=== PATIENT | male | born 1940 | race Caucasian/White ===

== ENCOUNTER → 2016-07-08 | Outpatient (CLI) | payer OTHER, MEDICAID | LOC: BMCIMAGING 12:22 | PROVIDERS: ATTEND Internal Medicine Rheumatology | DX: M15.4 Erosive (osteo)arthritis (principal) ==

== ENCOUNTER → 2018-04-07 | Outpatient (CLI) | payer OTHER, MEDICAID | LOC: FIMAGING 13:21 | PROVIDERS: ATTEND Internal Medicine | DX: R41.3 Other amnesia (principal) ==

== ENCOUNTER 2018-07-06 10:37 | Inpatient (IN) | payer OTHER, MEDICAID ==
[2018-07-06] MEDS ORDERED: NS 1,000 ML IV ONE (10:38)
--- NOTE | 2018-07-06 10:53 | EDPHY ---
H & P Stated Complaint: abdominal pain, nausea Time Seen by Provider: 07/06/18 10:38 HPI/ROS: CHIEF COMPLAINT: Fever, abdominal pain, jaundice HISTORY OF PRESENT ILLNESS: The patient is referred to the emergency department from primary care where he was noted to be febrile in jaundice. The patient has had 2 days of fever and epigastric pain. The patient does have a prior history of cholecystectomy in 2016. It sounds as if there may have been some component of choledocholithiasis at that point time. The patient has reported nausea over the past several days. He is not had vomiting, diarrhea, hematemesis or melena. The patient reports moderate to severe pain in the epigastrium. He reports loss of appetite. REVIEW OF SYSTEMS: A comprehensive 10 point review of systems is otherwise negative aside from elements mentioned in the history of present illness. Source: Patient Exam Limitations: No limitations - Personal History Current Tetanus/Diphtheria Vaccine: Unsure Current Tetanus Diphtheria and Acellular Pertussis (TDAP): Unsure - Medical/Surgical History Hx Asthma: No Hx Chronic Respiratory Disease: No Hx Diabetes: Yes Hx Cardiac Disease: No Hx Renal Disease: No Hx Cirrhosis: No Hx Alcoholism: No Hx HIV/AIDS: No Hx Splenectomy or Spleen Trauma: No Other PMH: diabetic 2 , skin lymphoma, hypertension, glaucoma, feet drop - Social History Smoking Status: Former smoker - Physical Exam Exam: General Appearance: Alert, no distress Eyes: Pupils equal and round no pallor or injection, slight icterus ENT, Mouth: Mucous membranes moist Respiratory: There are no retractions, lungs are clear to auscultation Cardiovascular: Regular rate and rhythm Gastrointestinal: Tenderness to palpation in the epigastrium and right upper quadrant, no peritoneal signs Neurological: A&O, normal motor function, normal sensory exam, normal cranial nerves Skin: Warm and dry, no rashes, suggestion of jaundice Musculoskeletal: Neck is supple nontender Extremities: symmetrical, full range of motion Constitutional: Initial Vital Signs Temperature (C) 36.7 C 07/06/18 10:43 Heart Rate 92 07/06/18 10:43 Respiratory Rate 18 07/06/18 10:43 Blood Pressure 132/81 H 07/06/18 10:43 O2 Sat (%) 98 07/06/18 10:43 O2 Delivery Mode Room Air Allergies/Adverse Reactions: latex Allergy (Verified 01/12/16 00:15) Latex, Natural Rubber Allergy (Verified 01/12/16 00:15) Penicillins Allergy (Verified 01/12/16 00:15) ramipril Allergy (Verified 01/12/16 00:15) Home Medications: Medication Instructions Recorded Allopurinol [Allopurinol 300 MG 300 mg PO DAILY 02/22/13 (RX)] Aspirin [Aspirin 81mg (*)] 81 mg PO DAILY 02/22/13 Atorvastatin Calcium [Lipitor 10 10 mg PO DAILY 02/22/13 mg (*)] Dorzolamide/Timolol [Cosopt (*)] 1 drops EACHEYE BID 02/22/13 Latanoprost 0.005% [Xalatan 0.005% 1 drops EACHEYE HS 02/22/13 (*)] [place]-3 Fatty Acids [Fish Oil 1000 3,000 mg PO DAILY 02/22/13 mg (*)] predniSONE 1 mg PO BID 02/06/16 Cholecalciferol Vit D3 [Vitamin D3 2,000 units PO DAILY 02/09/16 2000 units tab (OTC)] Econazole 1% [Spectazole 1%] 1 micah TP DAILY PRN 02/09/16 Fluticasone Nasal [Flonase Nasal 1 sprays NASAL DAILY PRN 02/09/16 [place]] Hydrochlorothiazide [HCTZ (*)] 25 mg PO DAILY 02/09/16 Magnesium Oxide [Magnesium Oxide 400 mg PO BID 02/09/16 400 mg (*)] Polyethylene Glycol 3350 [Miralax 17 gm PO BID 02/09/16 17 gm (*)] Triamcinolone 0.1% [Triamcinolone 1 micah TP DAILY PRN 02/09/16 0.1% Cream (*)] Hydrocodone/APAP 5/325 [[place] 1 - 2 tab PO Q4H PRN #30 tab 02/11/16 5/325 (*)] Medical Decision Making - Diagnostics Imaging Results: CT abdomen pelvis with IV contrast: Images reviewed by myself and discussed with radiologist. Impression choledocholithiasis with 1.3 cm stone noted at the ampulla. ED Course/Re-evaluation: Patient presents the ED with fever, epigastric pain, elevated liver function test and pancreatitis. The patient is afebrile, normotensive and not tachycardic. His venous lactate is reassuring. The patient [place] [address]. Given the patient's penicillin allergy will be started on Levaquin and Flagyl. I consulted with Dr. Cesilia trevizo from Gastroenterology who will see the patient in consultation. The patient will be admitted to the hospitalist service. The patient remained hemodynamically stable throughout his stay in the emergency department. He received IV fluids. He has no evidence of septic physiology, severe sepsis or septic shock. Differential Diagnosis: Differential diagnosis considered includes cholangitis, choledocholithiasis, pancreatic mass, metabolic derangement, sepsis - Data Points Laboratory Results: Laboratory Results 07/06/18 10:55 07/06/18 10:55 07/06/18 07/06/18 07/06/18 10:55 10:55 10:55 WBC 11.25 10^3/uL H 10^3/uL (3.80-9.50) RBC 4.21 10^6/uL L 10^6/uL (4.40-6.38) Hgb 13.4 g/dL L g/dL (13.7-17.5) Hct 37.4 % L % (40.0-51.0) MCV 88.8 fL fL (81.5-99.8) MCH 31.8 pg pg (27.9-34.1) MCHC 35.8 g/dL g/dL (32.4-36.7) RDW 12.7 % % (11.5-15.2) Plt Count 209 10^3/uL 10^3/uL (150-400) MPV 9.9 fL fL (8.7-11.7) Neut % (Auto) 82.3 % H % (39.3-74.2) Lymph % (Auto) 5.8 % L % (15.0-45.0) [place] % (Auto) 8.0 % % (4.5-13.0) Eos % (Auto) 2.8 % % (0.6-7.6) Baso % (Auto) 0.4 % % (0.3-1.7) Nucleat RBC Rel Count 0.0 % % (0.0-0.2) Absolute Neuts (auto) 9.27 10^3/uL H 10^3/uL (1.70-6.50) Absolute Lymphs (auto) 0.65 10^3/uL L 10^3/uL (1.00-3.00) Absolute Monos (auto) 0.90 10^3/uL H 10^3/uL (0.30-0.80) Absolute Eos (auto) 0.31 10^3/uL 10^3/uL (0.03-0.40) Absolute Basos (auto) 0.04 10^3/uL 10^3/uL (0.02-0.10) Absolute Nucleated RBC 0.00 10^3/uL 10^3/uL (0-0.01) Immature Gran % 0.7 % % (0.0-1.1) Immature Gran # 0.08 10^3/uL 10^3/uL (0.00-0.10) PT 13.0 SEC SEC (12.0-15.0) INR 1.02 (0.83-1.16) APTT 35.4 SEC SEC (23.0-38.0) VBG Lactic Acid Sodium 127 mEq/L L mEq/L (135-145) Potassium 3.6 mEq/L mEq/L (3.5-5.2) Chloride 90 mEq/L L mEq/L (97-110) Carbon Dioxide 24 mEq/l mEq/l (22-31) Anion Gap 13 mEq/L mEq/L (6-14) BUN 26 mg/dL H mg/dL (7-23) Creatinine 1.1 mg/dL mg/dL (0.7-1.3) Estimated GFR > 60 Glucose 117 mg/dL H mg/dL (70-100) Calcium 9.4 mg/dL mg/dL (8.5-10.4) Total Bilirubin 8.3 mg/dL H mg/dL (0.1-1.4) Conjugated Bilirubin 6.7 mg/dL H mg/dL (0.0-0.5) Unconjugated Bilirubin 1.6 mg/dL H mg/dL (0.0-1.1) AST 242 IU/L H IU/L (17-59) ALT 269 IU/L H IU/L (21-72) Alkaline Phosphatase 267 IU/L H IU/L (38-126) Total Protein 7.7 g/dL g/dL (6.3-8.2) Albumin 4.2 g/dL g/dL (3.5-5.0) Lipase 4818 IU/L H IU/L (23-300) 07/06/18 10:55 WBC RBC Hgb Hct MCV MCH MCHC RDW Plt Count MPV Neut % (Auto) Lymph % (Auto) [place] % (Auto) Eos % (Auto) Baso % (Auto) Nucleat RBC Rel Count Absolute Neuts (auto) Absolute Lymphs (auto) Absolute Monos (auto) Absolute Eos (auto) Absolute Basos (auto) Absolute Nucleated RBC Immature Gran % Immature Gran # PT INR APTT VBG Lactic Acid 1.2 mmol/L mmol/L (0.7-2.1) Sodium Potassium Chloride Carbon Dioxide Anion Gap BUN Creatinine Estimated GFR Glucose Calcium Total Bilirubin Conjugated Bilirubin Unconjugated Bilirubin AST ALT Alkaline Phosphatase Total Protein Albumin Lipase Medications Given: Discontinued Medications Sodium Chloride (Ns) 1,000 mls @ 0 mls/hr IV ONCE ONE; Wide Open PRN Reason: Protocol Stop: 07/06/18 10:39 Last Admin: 07/06/18 11:25 Dose: 1,000 mls Departure - Departure Disposition: [facility] Acute Clinical Impression: Cholangitis, Choledocholithiasis Condition: Fair
[2018-07-06 11:32] LABS: PLATELET COUNT 209 10^3/uL (150-400)
[2018-07-06 11:38] LABS: INR 1.02 (0.83-1.16)
[2018-07-06] MEDS ORDERED: IOPAMIDOL (ISOVUE-300) 100 ML BTL ONE (11:57)
[2018-07-06] MEDS ORDERED: IOPAMIDOL (ISOVUE-370) 150 ML BTL IV ONE (12:02)
[2018-07-06] MEDS ORDERED: CLINDAMYCIN 600 MG/DEXTROSE 50 ML IV ONE (12:07)
[2018-07-06] MEDS ORDERED: HYDROmorphONE/DILAUDID 1 MG/ML INJ IVP PRN (13:29)
[2018-07-06] MEDS ORDERED: ONDANSETRON 4 MG/2 ML VIAL IVP PRN (13:29)
[2018-07-06] MEDS ORDERED: ONDANSETRON DISINTEGRATING 4 MG TAB PO PRN (13:29)
--- NOTE | 2018-07-06 13:29 | PDGENHP ---
History and Physical - History of Present Illness History Information - Allergies/Home Medication List Allergies/Adverse Reactions: latex Allergy (Verified 01/12/16 00:15) Latex, Natural Rubber Allergy (Verified 01/12/16 00:15) Penicillins Allergy (Verified 07/06/18 13:28) Unknown ramipril Allergy (Verified 07/06/18 13:29) Other-Enter Comments Home Medications: Allopurinol [Allopurinol 300 MG (RX)] 300 mg PO DAILY 02/22/13 [Last Taken 07/04] Aspirin [Aspirin 81mg (*)] 81 mg PO DAILY 02/22/13 [Last Taken 07/04/18] Atorvastatin Calcium [Lipitor 10 mg (*)] 10 mg PO DAILY 02/22/13 [Last Taken ] Latanoprost 0.005% [Xalatan 0.005% (*)] 1 drops EACHEYE HS 02/22/13 [Last Taken 07/04/18] [place]-3 Fatty Acids [Fish Oil 1000 mg (*)] 3,000 mg PO DAILY 02/22/13 [Last Taken 07/04/18] Cholecalciferol Vit D3 [Vitamin D3 2000 units tab (OTC)] 2,000 units PO DAILY [Last Taken 07/04/18] Econazole 1% [Spectazole 1%] 1 micah TP DAILY PRN 02/09/16 [Last Taken Unknown] Fluticasone Nasal [Flonase Nasal [place]] 1 sprays NASAL DAILY PRN 02/09/16 [Last Taken 07/04/18] Magnesium Oxide [Magnesium Oxide 400 mg (*)] 400 mg PO BID 02/09/16 [Last Taken 07/04/18] Polyethylene Glycol 3350 [Miralax 17 gm (*)] 17 gm PO BID 02/09/16 [Last Taken 07/04/18] Triamcinolone 0.1% [Triamcinolone 0.1% Cream (*)] 1 micah TP DAILY PRN 02/09/16 [ Last Taken Unknown] Brimonidine 0.2% [ALPHAGAN 0.2% (RX)] 1 drops EACHEYE BID 07/06/18 [Last Taken 07/04/18] Dorzolamide 2% [Trusopt 2% (*)] 1 drops EACHEYE BID 07/06/18 [Last Taken ] Hydrochlorothiazide [HCTZ (*)] 12.5 mg PO DAILY 07/06/18 [Last Taken 07/05/18] Losartan Potassium [Cozaar 50 mg (*)] 50 mg PO DAILY 07/06/18 [Last Taken ] I have personally reviewed and updated: family history, medical history, social history, surgical history - Past Medical History diabetes type 2 - Surgical History Reports: cholecystectomy - Family History Positive for: non-pertinent - Social History Smoking Status: Former smoker Review of Systems Review of Systems: Physical Exam Physical Exam: Temp Pulse Resp BP Pulse Ox 36.7 C 92 18 132/81 H 98 07/06/18 10:43 07/06/18 10:43 07/06/18 10:43 07/06/18 10:43 07/06/18 10:43 Lab Data & Imaging Review 07/06/18 10:55 07/06/18 10:55 WBC 11.25 10^3/uL (3.80-9.50) H 07/06/18 10:55 RBC 4.21 10^6/uL (4.40-6.38) L 07/06/18 10:55 Hgb 13.4 g/dL (13.7-17.5) L 07/06/18 10:55 Hct 37.4 % (40.0-51.0) L 07/06/18 10:55 MCV 88.8 fL (81.5-99.8) 07/06/18 10:55 MCH 31.8 pg (27.9-34.1) 07/06/18 10:55 MCHC 35.8 g/dL (32.4-36.7) 07/06/18 10:55 RDW 12.7 % (11.5-15.2) 07/06/18 10:55 Plt Count 209 10^3/uL (150-400) 07/06/18 10:55 MPV 9.9 fL (8.7-11.7) 07/06/18 10:55 Neut % (Auto) 82.3 % (39.3-74.2) H 07/06/18 10:55 Lymph % (Auto) 5.8 % (15.0-45.0) L 07/06/18 10:55 [place] % (Auto) 8.0 % (4.5-13.0) 07/06/18 10:55 Eos % (Auto) 2.8 % (0.6-7.6) 07/06/18 10:55 Baso % (Auto) 0.4 % (0.3-1.7) 07/06/18 10:55 Nucleat RBC Rel Count 0.0 % (0.0-0.2) 07/06/18 10:55 Absolute Neuts (auto) 9.27 10^3/uL (1.70-6.50) H 07/06/18 10:55 Absolute Lymphs (auto) 0.65 10^3/uL (1.00-3.00) L 07/06/18 10:55 Absolute Monos (auto) 0.90 10^3/uL (0.30-0.80) H 07/06/18 10:55 Absolute Eos (auto) 0.31 10^3/uL (0.03-0.40) 07/06/18 10:55 Absolute Basos (auto) 0.04 10^3/uL (0.02-0.10) 07/06/18 10:55 Absolute Nucleated RBC 0.00 10^3/uL (0-0.01) 07/06/18 10:55 Immature Gran % 0.7 % (0.0-1.1) 07/06/18 10:55 Immature Gran # 0.08 10^3/uL (0.00-0.10) 07/06/18 10:55 PT 13.0 SEC (12.0-15.0) 07/06/18 10:55 INR 1.02 (0.83-1.16) 07/06/18 10:55 APTT 35.4 SEC (23.0-38.0) 07/06/18 10:55 VBG Lactic Acid 1.2 mmol/L (0.7-2.1) 07/06/18 10:55 Sodium 127 mEq/L (135-145) L 07/06/18 10:55 Potassium 3.6 mEq/L (3.5-5.2) 07/06/18 10:55 Chloride 90 mEq/L (97-110) L 07/06/18 10:55 Carbon Dioxide 24 mEq/l (22-31) 07/06/18 10:55 Anion Gap 13 mEq/L (6-14) 07/06/18 10:55 BUN 26 mg/dL (7-23) H 07/06/18 10:55 Creatinine 1.1 mg/dL (0.7-1.3) 07/06/18 10:55 Estimated GFR > 60 07/06/18 10:55 Glucose 117 mg/dL (70-100) H 07/06/18 10:55 Calcium 9.4 mg/dL (8.5-10.4) 07/06/18 10:55 Total Bilirubin 8.3 mg/dL (0.1-1.4) H 07/06/18 10:55 Conjugated Bilirubin 6.7 mg/dL (0.0-0.5) H 07/06/18 10:55 Unconjugated Bilirubin 1.6 mg/dL (0.0-1.1) H 07/06/18 10:55 AST 242 IU/L (17-59) H 07/06/18 10:55 ALT 269 IU/L (21-72) H 07/06/18 10:55 Alkaline Phosphatase 267 IU/L (38-126) H 07/06/18 10:55 Total Protein 7.7 g/dL (6.3-8.2) 07/06/18 10:55 Albumin 4.2 g/dL (3.5-5.0) 07/06/18 10:55 Lipase 4818 IU/L (23-300) H 07/06/18 10:55 Assessment & Plan Assessment: Cholangitis / choledocholithiasis - No signs of sepsis. Note h/o cholecystectomy. CT personally reviewed, CBD 1.6 cm with presumed obstructing stone. -NPO, IVF's, pain control -Ceftriaxone / Flagyl -GI consult, will likely need ERCP Pancreatitis - lipase >4K, likely in setting of above -NPO for bowel rest, IVF's, pain control -will discuss with GI timing of ERCP for above given risk of worsening acute pancreatitis with intervention Possible LLL PNA - seen on CT. Pt has cough, no hypoxemia -should be covered by Ceftriaxone -check CXR Hyponatremia - suspect hypovolemic -recheck in am after NS Hyperlipidemia - hold statin with elevated LFT's Full code DVT PPLX - defer lovenox as may warrant intervention, SCD's for now Dispo - inpt, anticipate >48 hrs hospitalization for cholangitis, pancreatitis and possible PNA
[2018-07-06] MEDS ORDERED: ECONAZOLE 1% CREAM TP PRN (14:39)
[2018-07-06] MEDS ORDERED: FLUTICASONE NASAL 120 SPRAYS/16 GM MDI EACHNARE PRN (14:39)
--- NOTE | 2018-07-06 14:57 | PDGENHP ---
History and Physical - Chief Complaint abdominal pain - History of Present Illness 78 yo male with h/o prior cholecystectomy in 2016 presents to ED with abdominal pain, nausea and fever. History is obtained from his daughter at his request. She reports he developed a cough about a week ago. This has progressed. Two days ago, he began to complain of abdominal pain and had some nausea and vomiting. He then developed fever. Today, his pain became severe and he came to the ED. He denies CP or shortness of breath. In the ED, CT abdomen showed obvious common bile duct dilatation and probable 1.3 cm stone. GI was consulted. Blood cultures were drawn. He received Levaquin and Flagyl and is admitted for further management. History Information - Allergies/Home Medication List Allergies/Adverse Reactions: latex Allergy (Verified 01/12/16 00:15) Latex, Natural Rubber Allergy (Verified 01/12/16 00:15) Penicillins Allergy (Verified 07/06/18 13:28) Unknown ramipril Allergy (Verified 07/06/18 13:29) Other-Enter Comments Home Medications: Allopurinol [Allopurinol 300 MG (RX)] 300 mg PO DAILY 02/22/13 [Last Taken 07/04] Aspirin [Aspirin 81mg (*)] 81 mg PO DAILY 02/22/13 [Last Taken 07/04/18] Atorvastatin Calcium [Lipitor 10 mg (*)] 10 mg PO DAILY 02/22/13 [Last Taken ] Latanoprost 0.005% [Xalatan 0.005% (*)] 1 drops EACHEYE HS 02/22/13 [Last Taken 07/04/18] [place]-3 Fatty Acids [Fish Oil 1000 mg (*)] 3,000 mg PO DAILY 02/22/13 [Last Taken 07/04/18] Cholecalciferol Vit D3 [Vitamin D3 2000 units tab (OTC)] 2,000 units PO DAILY [Last Taken 07/04/18] Econazole 1% [Spectazole 1%] 1 micah TP DAILY PRN 02/09/16 [Last Taken Unknown] Fluticasone Nasal [Flonase Nasal [place]] 1 sprays NASAL DAILY PRN 02/09/16 [Last Taken 07/04/18] Magnesium Oxide [Magnesium Oxide 400 mg (*)] 400 mg PO BID 02/09/16 [Last Taken 07/04/18] Polyethylene Glycol 3350 [Miralax 17 gm (*)] 17 gm PO BID 02/09/16 [Last Taken 07/04/18] Triamcinolone 0.1% [Triamcinolone 0.1% Cream (*)] 1 micah TP DAILY PRN 02/09/16 [ Last Taken Unknown] Brimonidine 0.2% [ALPHAGAN 0.2% (RX)] 1 drops EACHEYE BID 07/06/18 [Last Taken 07/04/18] Dorzolamide 2% [Trusopt 2% (*)] 1 drops EACHEYE BID 07/06/18 [Last Taken ] Hydrochlorothiazide [HCTZ (*)] 12.5 mg PO DAILY 07/06/18 [Last Taken 07/05/18] Losartan Potassium [Cozaar 50 mg (*)] 50 mg PO DAILY 07/06/18 [Last Taken ] I have personally reviewed and updated: family history, medical history, social history, surgical history - Past Medical History diabetes type 2 - Surgical History Reports: cholecystectomy - Family History Positive for: non-pertinent - Social History Smoking Status: Former smoker Alcohol Use: Rarely Drug Use: None Additional social history: Lives independently Review of Systems Review of Systems: ROS: 10pt was reviewed & negative except for what was stated in HPI & below Physical Exam Physical Exam: Temp Pulse Resp BP Pulse Ox 36.7 C 93 16 133/82 H 93 07/06/18 14:38 07/06/18 14:38 07/06/18 14:38 07/06/18 14:38 07/06/18 14:38 Constitutional: no apparent distress Eyes: PERRL Ears, Nose, Mouth, Throat: moist mucous membranes Cardiovascular: regular rate and rhythym Respiratory: no respiratory distress, other (LLL crackles) Gastrointestinal: other (soft, nd, +epigastric and RUQ TTP, no r/r/g, +BS) Skin: warm Musculoskeletal: full muscle strength Neurologic: AAOx3 Psychiatric: interacting appropriately Lab Data & Imaging Review 07/06/18 10:55 07/06/18 10:55 WBC 11.25 10^3/uL (3.80-9.50) H 07/06/18 10:55 RBC 4.21 10^6/uL (4.40-6.38) L 07/06/18 10:55 Hgb 13.4 g/dL (13.7-17.5) L 07/06/18 10:55 Hct 37.4 % (40.0-51.0) L 07/06/18 10:55 MCV 88.8 fL (81.5-99.8) 07/06/18 10:55 MCH 31.8 pg (27.9-34.1) 07/06/18 10:55 MCHC 35.8 g/dL (32.4-36.7) 07/06/18 10:55 RDW 12.7 % (11.5-15.2) 07/06/18 10:55 Plt Count 209 10^3/uL (150-400) 07/06/18 10:55 MPV 9.9 fL (8.7-11.7) 07/06/18 10:55 Neut % (Auto) 82.3 % (39.3-74.2) H 07/06/18 10:55 Lymph % (Auto) 5.8 % (15.0-45.0) L 07/06/18 10:55 [place] % (Auto) 8.0 % (4.5-13.0) 07/06/18 10:55 Eos % (Auto) 2.8 % (0.6-7.6) 07/06/18 10:55 Baso % (Auto) 0.4 % (0.3-1.7) 07/06/18 10:55 Nucleat RBC Rel Count 0.0 % (0.0-0.2) 07/06/18 10:55 Absolute Neuts (auto) 9.27 10^3/uL (1.70-6.50) H 07/06/18 10:55 Absolute Lymphs (auto) 0.65 10^3/uL (1.00-3.00) L 07/06/18 10:55 Absolute Monos (auto) 0.90 10^3/uL (0.30-0.80) H 07/06/18 10:55 Absolute Eos (auto) 0.31 10^3/uL (0.03-0.40) 07/06/18 10:55 Absolute Basos (auto) 0.04 10^3/uL (0.02-0.10) 07/06/18 10:55 Absolute Nucleated RBC 0.00 10^3/uL (0-0.01) 07/06/18 10:55 Immature Gran % 0.7 % (0.0-1.1) 07/06/18 10:55 Immature Gran # 0.08 10^3/uL (0.00-0.10) 07/06/18 10:55 PT 13.0 SEC (12.0-15.0) 07/06/18 10:55 INR 1.02 (0.83-1.16) 07/06/18 10:55 APTT 35.4 SEC (23.0-38.0) 07/06/18 10:55 VBG Lactic Acid 1.2 mmol/L (0.7-2.1) 07/06/18 10:55 Sodium 127 mEq/L (135-145) L 07/06/18 10:55 Potassium 3.6 mEq/L (3.5-5.2) 07/06/18 10:55 Chloride 90 mEq/L (97-110) L 07/06/18 10:55 Carbon Dioxide 24 mEq/l (22-31) 07/06/18 10:55 Anion Gap 13 mEq/L (6-14) 07/06/18 10:55 BUN 26 mg/dL (7-23) H 07/06/18 10:55 Creatinine 1.1 mg/dL (0.7-1.3) 07/06/18 10:55 Estimated GFR > 60 07/06/18 10:55 Glucose 117 mg/dL (70-100) H 07/06/18 10:55 Calcium 9.4 mg/dL (8.5-10.4) 07/06/18 10:55 Total Bilirubin 8.3 mg/dL (0.1-1.4) H 07/06/18 10:55 Conjugated Bilirubin 6.7 mg/dL (0.0-0.5) H 07/06/18 10:55 Unconjugated Bilirubin 1.6 mg/dL (0.0-1.1) H 07/06/18 10:55 AST 242 IU/L (17-59) H 07/06/18 10:55 ALT 269 IU/L (21-72) H 07/06/18 10:55 Alkaline Phosphatase 267 IU/L (38-126) H 07/06/18 10:55 Total Protein 7.7 g/dL (6.3-8.2) 07/06/18 10:55 Albumin 4.2 g/dL (3.5-5.0) 07/06/18 10:55 Lipase 4818 IU/L (23-300) H 07/06/18 10:55 Assessment & Plan Assessment: Cholangitis / choledocholithiasis - No signs of sepsis. Note h/o cholecystectomy. CT personally reviewed, CBD 1.6 cm with presumed obstructing stone. -NPO, IVF's, pain control -Ceftriaxone / Flagyl -GI consult, will likely need ERCP, discussed with Dr. Lomas Pancreatitis - lipase >4K, likely in setting of above -NPO for bowel rest, IVF's, pain control -discussed with GI timing of ERCP for above given risk of worsening acute pancreatitis with intervention, but he needs the ERCP and will likely proceed in am Possible LLL PNA - seen on CT. Pt has cough, no hypoxemia -should be covered by Ceftriaxone -check CXR Hyponatremia - suspect hypovolemic -recheck in am after NS Hyperlipidemia - hold statin with elevated LFT's Full code DVT PPLX - defer lovenox as may warrant intervention, SCD's for now Dispo - inpt, anticipate >48 hrs hospitalization for cholangitis, pancreatitis and possible PNA
[2018-07-06] MEDS: NS W/ 20 KCl/L 1,000 ML IV SCH (16:32)
--- NOTE | 2018-07-06 17:45 | PDMN ---
Medical Necessity Medical necessity: Pt meets IP criteria per & RADHA [id number]; est los >2 mn for eval/tx of cholangitis, worsening pancreatitis & possible pneumonia; admit for further workup/monitoring, NPO status, GI consult w/possible ERCP, IVFs, pain management & IV abx; comorbid advanced age; per H&P & order 07/06/18
--- NOTE | 2018-07-06 18:55 | GCON ---
[f rep st] CONSULTATION DATE OF CONSULTATION: 07/06/2018 REFERRING PHYSICIAN: Rama Campos MD CHIEF COMPLAINT: Jaundice. HISTORY OF PRESENT ILLNESS: I am asked to see this patient in consultation by Dr. Campos for chief complaint of jaundice. The patient is an 78-year-old with history of choledocholithiasis, underwent cholecystectomy and ERCP in 2016. At that point, he did have a sphincterotomy and stone extraction. Had done well until recently. About a week ago, he developed a cough, and then in the last 24-48 hours, he has not been feeling well. He did have a fever yesterday, but it resolved with Tylenol and then developed significant abdominal pain that he states was a 10/10, however, better now. No nausea and vomiting. The patient denies alcohol use. No prior history of pancreatitis. Of note, patient is French-speaking only, and history was obtained via automotive parts interpreter with his daughter acting as automotive parts interpreter. ALLERGIES: To latex, penicillin, and ramipril. MEDICINES: At home include: 1. Hydrochlorothiazide. 2. Cozaar. 3. Nasal fluticasone. 4. Multivitamins. 5. Aspirin. 6. Allopurinol. PAST MEDICAL HISTORY: The patient has type 2 diabetes. He had history of choledocholithiasis. SOCIAL HISTORY: Denies alcohol. FAMILY HISTORY: Negative for pancreatic disease. REVIEW OF SYSTEMS: I performed a complete review of systems which is negative except for the pertinent positives and negatives as noted above in HPI. PHYSICAL EXAM: VITAL SIGNS: Afebrile at 36.8, BP 116/61, pulse 93. CONSTITUTIONAL: He is alert and oriented. EYES: Show scleral icterus. HENT: No oral lesions. CARDIOVASCULAR: Regular rate and rhythm. CHEST: Some decreased breath sounds bilaterally. ABDOMEN: Obese, soft, but tender in the epigastric area. NEUROLOGIC: Nonfocal. SKIN: No lesions. LABORATORY AND DIAGNOSTIC FINDINGS: White count is 11.25, hemoglobin 13 with hematocrit 37.4, platelets are 209. Pro time is normal at 13.0 with INR 1.02. Lactic acid is normal at 1.2. Chemistries show a total bilirubin of 8.3, alkaline phosphatase 267, AST 242, ALT 269, lipase 4818. CT scan of the abdomen shows dilated common duct to 1.6 cm with a stone at the level of the ampulla, which is 1.3 cm. ASSESSMENT: 1. Jaundice. 2. Dilated common duct with abnormal CT scan showing recurrent choledocholithiasis. 3. Elevated lipase, concerning for pancreatitis, although on CT scan, there is no pancreatic duct dilation or significant inflammation reported. 4. Elevated white count. The patient did have fever yesterday. Concern for possible cholangitis, though without clinical evidence of sepsis today. The patient will need endoscopic retrograde cholangiopancreatography for removal of the common duct stone. He overall would be very high risk given his age and cough, so concerned about his pulmonary status, although I do not think this represents adult respiratory distress syndrome from his pancreatitis, as he has been having a cough for at least a week before this. PLAN: 1. N.p.o. 2. Aggressive IV fluids, as much as can be tolerated with his cardiopulmonary status. He will likely need close monitoring. 3. Agree with antibiotics. 4. ERCP, will discuss with therapeutic endoscopist for timing. Thank you for this consult. /[id number]/MODL MTDD
[2018-07-06] MEDS: LATANOPROST 0.005% 2.5 ML OPHT DROPS EACHEYE SCH (23:16)
[2018-07-06] MEDS: BRIMONIDINE 0.2% 5 ML OPHT.BTL EACHEYE SCH (23:16)
[2018-07-06] MEDS: DORZOLAMIDE 2% OPTH DROPS EACHEYE SCH (23:16)
[2018-07-07] MEDS: GUAIFENESIN/DM 10 ML UDCUP PO PRN ×3 (02:00→21:30)
[2018-07-07] MEDS: BENZONATATE 100 MG CAP PO PRN ×2 (02:00→21:30)
[2018-07-07] MEDS: NS W/ 20 KCl/L 1,000 ML IV SCH ×3 (02:48→23:58)
[2018-07-07 05:26] LABS: PLATELET COUNT 165 10^3/uL (150-400)
[2018-07-07] MEDS: DORZOLAMIDE 2% OPTH DROPS EACHEYE SCH ×2 (08:38→21:30)
[2018-07-07] MEDS: BRIMONIDINE 0.2% 5 ML OPHT.BTL EACHEYE SCH ×2 (08:38→21:30)
[2018-07-07] MEDS: ALLOPURINOL 300 MG TAB PO SCH (08:39)
[2018-07-07] MEDS ORDERED: LOSARTAN POTASSIUM 50 MG TAB PO SCH (09:00)
[2018-07-07] MEDS ORDERED: AZITHROMYCIN 250 MG TAB PO SCH (09:00)
--- NOTE | 2018-07-07 11:39 | SOAPPROG ---
SOAP Progress Note Assessment/Plan: Assessment: Pneumonia with RSV Jaundice, Abnl LFT, Pancreatitis with CBD stone. Overall suspect pancreaitis is improving. Will need ERCP but will postpone today given pulmonary infection. Plan: Tentatively plan for ERCP tomorrow if continues to improve. If e/o cholangitis may need yo do ERCP urgently or consider percutaneous tap Dr. Almeida to assume service today at 5:00 PM 07/07/18 11:40 Subjective: CC jaundice Abd pain improved today. C/o ongoing cough Objective: Vital Signs Temp Pulse Resp BP Pulse Ox 36.4 C 71 16 124/74 H 95 07/07/18 07:35 07/07/18 07:35 07/07/18 07:35 07/07/18 07:35 07/07/18 07:35 Microbiology 07/06/18 15:15 Respiratory Panel (PCR) - Final Nasal, Sinus - Swab Respiratory Syncytial Virus Laboratory Results 07/07/18 04:50 07/07/18 04:50 07/06/18 07/07/18 07/08/18 05:59 05:59 05:59 Intake Total 2250 Balance 2250 PT 13.0 SEC (12.0-15.0) 07/06/18 10:55 INR 1.02 (0.83-1.16) 07/06/18 10:55 Physical Exam - Physical Exam General Appearance: no apparent distress Respiratory: decreased breath sounds Cardiac/Chest: regular rate, rhythm Abdomen: soft (mild tenderness) ICD10 Worksheet Patient Problems: Problems Problem Status Onset Cholangitis Acute Choledocholithiasis Acute Cholecystitis with cholelithiasis Acute Choledocholithiasis with cholecystitis Acute
--- NOTE | 2018-07-07 14:38 | ASMTCMCOM ---
CM Note CM Note Notes: Pt chart reviewed abd met with Pt. Pt is an 78yr old admitted with abd pain, nausea, fever and vomiting with choledocholithias. Also, with Pneumonia vs RSV. Will need ERCP but will postpone due to Resp Infection. History DM. Pt lives Independent. CM available for needs. PLAN: TBD Date Signed: 07/07/2018 02:38 PM Electronically Signed By:Irene Stahl
--- NOTE | 2018-07-07 15:36 | HOSPPROG ---
Hospitalist Progress Note Assessment/Plan: Cholangitis / choledocholithiasis - No signs of sepsis. Note h/o cholecystectomy. CT personally reviewed, CBD 1.6 cm with obstructing stone. -NPO, IVF's, pain control -cont Levaquin / Flagyl -will need ERCP, discussed with Dr. Lomas, planning for possibly tomorrow , sooner if he decompensates Pancreatitis - lipase >4K --> 2,800, likely 2/2 above -NPO for bowel rest, IVF's, pain control LLL PNA - in setting of viral URI (RSV positive). Pt has cough, no hypoxemia or sepsis. CXR pers reviewed/interp, LLL infiltrate -on Levaquin -anti-tussives, supportive care Hyponatremia - suspect hypovolemic, improving with NS Hyperlipidemia - hold statin with elevated LFT's Hypertension - holding Losartan for now given acute illness, resume as indicated Full code DVT PPLX - Lovenox deferred as may need urgent procedure, SCD's for now Dispo - cont inpt. Pt speaks Faroese, daughter involved. Subjective: Pt feels better. He is still coughing quite a bit. No abdominal pain, nausea or vomiting. No fevers. Objective: Vital Signs Temp Pulse Resp BP Pulse Ox 36.7 C 84 18 113/63 96 07/07/18 11:35 07/07/18 11:35 07/07/18 11:35 07/07/18 11:35 07/07/18 11:35 Microbiology 07/06/18 15:15 Respiratory Panel (PCR) - Final Nasal, Sinus - Swab Respiratory Syncytial Virus Laboratory Results 07/07/18 04:50 07/07/18 04:50 07/06/18 07/07/18 07/08/18 05:59 05:59 05:59 Intake Total 2250 Balance 2250 PT 13.0 SEC (12.0-15.0) 07/06/18 10:55 INR 1.02 (0.83-1.16) 07/06/18 10:55 - Physical Exam Constitutional: no apparent distress Eyes: PERRL Ears, Nose, Mouth, Throat: moist mucous membranes Cardiovascular: regular rate and rhythym Respiratory: no respiratory distress, clear to auscultation Gastrointestinal: other (soft, nd, mild TTP epigastrium and RUQ, no r/r/g, +BS) Skin: warm Musculoskeletal: full muscle strength Neurologic: AAOx3 Psychiatric: interacting appropriately ICD10 Worksheet Patient Problems: Problems Problem Status Onset Cholangitis Acute Choledocholithiasis Acute Cholecystitis with cholelithiasis Acute Choledocholithiasis with cholecystitis Acute
[2018-07-07] MEDS: guaiFENesin 600 MG TAB.ER PO SCH (21:30)
[2018-07-07] MEDS: LATANOPROST 0.005% 2.5 ML OPHT DROPS EACHEYE SCH (21:30)
[2018-07-08 05:25] LABS: PLATELET COUNT 192 10^3/uL (150-400)
[2018-07-08] MEDS: NS W/ 20 KCl/L 1,000 ML IV SCH ×2 (09:08→19:40)
[2018-07-08] MEDS: DORZOLAMIDE 2% OPTH DROPS EACHEYE SCH ×2 (09:13→20:43)
[2018-07-08] MEDS: BRIMONIDINE 0.2% 5 ML OPHT.BTL EACHEYE SCH ×2 (09:13→20:44)
[2018-07-08] MEDS: guaiFENesin 600 MG TAB.ER PO SCH ×2 (09:19→20:43)
[2018-07-08] MEDS: BENZONATATE 100 MG CAP PO PRN ×2 (09:19→19:40)
[2018-07-08] MEDS: ALLOPURINOL 300 MG TAB PO SCH (09:19)
--- NOTE | 2018-07-08 09:59 | SOAPPROG ---
SOAP Progress Note Assessment/Plan: Assessment: 1. CBD stone; LFT's improving and without GI symptoms. Bases on clinical course I do not think that patient has ascending cholangitis. 2. Pancreatitis, improved. 3. Pneumonia, improving. Plan: 1. Would hold off on ERCP for a few days due to continued treatment of pneumonia and ris of anesthesia with ERCP. 2. LFT's, Lipase in am. 2. ERCP prior to discharge. 3. Clears po today. Jaime Almeida MD [phone] 07/08/18 10:04 Subjective: CC: CBD stone. Interval HPI: Patient continues to have cough. No abdominal pain. Objective: Vital Signs Temp Pulse Resp BP Pulse Ox 36.5 C 88 18 131/76 H 96 07/08/18 08:00 07/08/18 08:00 07/08/18 08:00 07/08/18 08:00 07/08/18 08:00 Laboratory Results 07/08/18 04:56 07/08/18 04:56 07/07/18 07/08/18 07/09/18 05:59 05:59 05:59 Intake Total 2250 2666 Balance 2250 2666 PT 13.0 SEC (12.0-15.0) 07/06/18 10:55 INR 1.02 (0.83-1.16) 07/06/18 10:55 Laboratory Tests 07/08/18 04:56 Sodium 134 L BUN 17 Creatinine 1.0 Total Bilirubin 3.3 H Conjugated Bilirubin 2.2 H Unconjugated Bilirubin 1.1 AST 116 H ALT 170 H Alkaline Phosphatase 213 H Physical Exam - Physical Exam General Appearance: alert, mild distress Respiratory: chest non-tender, rhonchi Cardiac/Chest: regular rate, rhythm Abdomen: normal bowel sounds, non-tender, soft Skin: normal color, warm/dry Neuro/Psych: alert, normal mood/affect, oriented x 3 ICD10 Worksheet Patient Problems: Problems Problem Status Onset Cholangitis Acute Choledocholithiasis Acute Cholecystitis with cholelithiasis Acute Choledocholithiasis with cholecystitis Acute
--- NOTE | 2018-07-08 15:40 | HOSPPROG ---
Hospitalist Progress Note Assessment/Plan: Cholangitis / choledocholithiasis - No signs of sepsis. Note h/o cholecystectomy. CT personally reviewed, CBD 1.6 cm with obstructing stone. -ADAT (on CLD), IVF's, pain control -cont Levaquin / Flagyl -will need ERCP, per Dr. Almeida hold off for a few days but will require prior to d/c - LFTs improving this AM despite no intervention, continue to monitor, CMP in the AM Pancreatitis - lipase >4K --> 2,800, likely 2/2 above -CLD for bowel rest, IVF's, pain control LLL PNA - in setting of viral URI (RSV positive). Pt has cough, no hypoxemia or sepsis. CXR pers reviewed/interp, LLL infiltrate -on Levaquin -anti-tussives, supportive care Hyponatremia - suspect hypovolemic, improving with NS, 134 this AM from 127 on admission Hyperlipidemia - holding statin with elevated LFT's Hypertension - holding Losartan for now given acute illness, resume as indicated Full code DVT PPLX - Lovenox deferred as may need urgent procedure, SCD's for now Dispo - cont inpt. Pt speaks Swiss, daughter involved. Subjective: Patient with minimal abdominal pain this AM Objective: Vital Signs Temp Pulse Resp BP Pulse Ox 36.8 C 87 18 130/83 H 96 07/08/18 11:43 07/08/18 11:43 07/08/18 11:43 07/08/18 11:43 07/08/18 11:43 Laboratory Results 07/08/18 04:56 07/08/18 04:56 07/07/18 07/08/18 07/09/18 05:59 05:59 05:59 Intake Total 2250 2666 Balance 2250 2666 PT 13.0 SEC (12.0-15.0) 07/06/18 10:55 INR 1.02 (0.83-1.16) 07/06/18 10:55 - Physical Exam Constitutional: no apparent distress Eyes: PERRL Ears, Nose, Mouth, Throat: moist mucous membranes Cardiovascular: regular rate and rhythym Respiratory: no respiratory distress Gastrointestinal: soft, non-tender abdomen Skin: warm Musculoskeletal: full muscle strength Neurologic: AAOx3 Psychiatric: interacting appropriately ICD10 Worksheet Patient Problems: Problems Problem Status Onset Cholangitis Acute Choledocholithiasis Acute Cholecystitis with cholelithiasis Acute Choledocholithiasis with cholecystitis Acute
[2018-07-08] MEDS: LATANOPROST 0.005% 2.5 ML OPHT DROPS EACHEYE SCH (20:44)
[2018-07-08] MEDS: GUAIFENESIN/DM 10 ML UDCUP PO PRN (23:03)
[2018-07-09] MEDS: NS W/ 20 KCl/L 1,000 ML IV SCH (04:45)
[2018-07-09] MEDS: BENZONATATE 100 MG CAP PO PRN (04:47)
[2018-07-09] MEDS: ALLOPURINOL 300 MG TAB PO SCH (09:23)
[2018-07-09] MEDS: guaiFENesin 600 MG TAB.ER PO SCH ×2 (09:23→20:22)
[2018-07-09] MEDS: BRIMONIDINE 0.2% 5 ML OPHT.BTL EACHEYE SCH ×2 (09:23→20:22)
[2018-07-09] MEDS: DORZOLAMIDE 2% OPTH DROPS EACHEYE SCH ×2 (09:24→20:23)
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
[2018-07-09] MEDS: HYDROCHLOROTHIAZIDE 12.5 MG CAP PO SCH (11:25)
--- NOTE | 2018-07-09 15:10 | SOAPPROG ---
SOAP Progress Note Assessment/Plan: Assessment: 1. CBD stone; LFT's improving and without GI symptoms. Bases on clinical course I do not think that patient has ascending cholangitis. 2. Pancreatitis, improved. 3. Pneumonia, improving. Plan: 1. Would hold off on ERCP for a few days due to continued treatment of pneumonia and risk of anesthesia with ERCP. NPO after MN for possible ERCP tomorrow. 2. LFT's, Lipase in am. 3. Clears po today. Jaime Almeida MD [phone] 07/09/18 15:10 Subjective: CC: CBD stone. Interval HPI: Patient without abdominal pain. Continued productive cough. C/O pedal edema. Objective: Vital Signs Temp Pulse Resp BP Pulse Ox 36.6 C 87 18 131/83 H 98 07/09/18 07:19 07/09/18 11:54 07/09/18 11:54 07/09/18 11:54 07/09/18 11:54 Laboratory Results 07/08/18 04:56 07/09/18 04:30 07/08/18 07/09/18 07/10/18 05:59 05:59 05:59 Intake Total 2666 1578 1953 Balance 2666 1578 1953 PT 13.0 SEC (12.0-15.0) 07/06/18 10:55 INR 1.02 (0.83-1.16) 07/06/18 10:55 Laboratory Tests 07/09/18 04:30 Total Bilirubin 2.8 H AST 113 H ALT 152 H Alkaline Phosphatase 194 H Lipase 520 H Physical Exam - Physical Exam General Appearance: WD/WN, alert, no apparent distress Respiratory: rhonchi Cardiac/Chest: regular rate, rhythm, edema (+2 pedal) Abdomen: normal bowel sounds, non-tender, soft Skin: normal color, warm/dry Neuro/Psych: alert, normal mood/affect, oriented x 3 ICD10 Worksheet Patient Problems: Problems Problem Status Onset Cholangitis Acute Choledocholithiasis Acute Cholecystitis with cholelithiasis Acute Choledocholithiasis with cholecystitis Acute
--- NOTE | 2018-07-09 15:28 | HOSPPROG ---
Hospitalist Progress Note Assessment/Plan: Cholangitis / choledocholithiasis - No signs of sepsis. Note h/o cholecystectomy. CT personally reviewed, CBD 1.6 cm with obstructing stone. -ADAT (on CLD), IVF's, pain control -cont Levaquin / Flagyl -GI consulted, per Dr. Almeida NPO after midnight for ERCP tomorrow AM - LFTs improving this AM despite no intervention, continue to monitor, CMP in the AM Pancreatitis - lipase >4K --> 2,800, likely 2/2 above -CLD for bowel rest, IVF's, pain control LLL PNA - in setting of viral URI (RSV positive). Pt has cough, no hypoxemia or sepsis. CXR pers reviewed/interp, LLL infiltrate -on Levaquin -anti-tussives, supportive care Hyponatremia - suspect hypovolemic, improving with NS, 136 this AM from 127 on admission Hyperlipidemia - holding statin with elevated LFT's Hypertension - Restarted HCTZ today given some increased LE edema as well Full code DVT PPLX - Lovenox deferred as may need urgent procedure, SCD's for now Dispo - cont inpt. Pt speaks [place]ankan, daughter involved. Subjective: Patient reports no complaints this AM Objective: Vital Signs Temp Pulse Resp BP Pulse Ox 36.6 C 87 18 131/83 H 98 07/09/18 07:19 07/09/18 11:54 07/09/18 11:54 07/09/18 11:54 07/09/18 11:54 Laboratory Results 07/08/18 04:56 07/09/18 04:30 07/08/18 07/09/18 07/10/18 05:59 05:59 05:59 Intake Total 2666 1578 1953 Balance 2666 1578 1953 PT 13.0 SEC (12.0-15.0) 07/06/18 10:55 INR 1.02 (0.83-1.16) 07/06/18 10:55 - Physical Exam Constitutional: no apparent distress Eyes: PERRL Ears, Nose, Mouth, Throat: moist mucous membranes Cardiovascular: regular rate and rhythym, edema Respiratory: no respiratory distress Gastrointestinal: soft, non-tender abdomen Genitourinary: no bladder fullness Skin: warm Neurologic: AAOx3 Psychiatric: interacting appropriately ICD10 Worksheet Patient Problems: Problems Problem Status Onset Cholangitis Acute Choledocholithiasis Acute Cholecystitis with cholelithiasis Acute Choledocholithiasis with cholecystitis Acute
[2018-07-09] MEDS: LATANOPROST 0.005% 2.5 ML OPHT DROPS EACHEYE SCH (20:23)
[2018-07-10] MEDS: guaiFENesin 600 MG TAB.ER PO SCH ×2 (09:19→23:10)
[2018-07-10] MEDS: HYDROCHLOROTHIAZIDE 12.5 MG CAP PO SCH (09:19)
[2018-07-10] MEDS: ALLOPURINOL 300 MG TAB PO SCH (09:19)
[2018-07-10] MEDS: BRIMONIDINE 0.2% 5 ML OPHT.BTL EACHEYE SCH ×2 (09:25→23:10)
[2018-07-10] MEDS: DORZOLAMIDE 2% OPTH DROPS EACHEYE SCH ×2 (09:26→23:10)
--- NOTE | 2018-07-10 14:05 | PDANEPAE ---
ANE Past Medical History - Cardiovascular History Hx Hypertension: Yes Hx Arrhythmias: No Hx Chest Pain: No Hx Coronary Artery / Peripheral Vascular Disease: No Hx CHF / Valvular Disease: No Hx Palpitations: No - Pulmonary History Hx COPD: No Hx Asthma/Reactive Airway Disease: No Hx Recent Upper Respiratory Infection: No Hx Oxygen in Use at Home: No Hx Sleep Apnea: Yes Sleep Apnea Screening Result - Last Documented: Positive Pulmonary History Comment: recent LLL pneumonia - Neurologic History Hx Cerebrovascular Accident: No Hx Seizures: No Hx Dementia: No - Endocrine History Hx Diabetes: Yes Hypothyroid: No Hyperthyroid: No Obesity: yes, mild Endocrine History Comment: Type II - Renal History Hx Renal Disorders: Yes Renal History Comment: Chronic renal failure? - Liver History Hx Hepatic Disorders: No - Neurological & Psychiatric Hx Hx Neurological and Psychiatric Disorders: No - Cancer History Hx Cancer: Yes Cancer History Comment: Skin Lymphoma - Congenital Disorder History Hx Congenital Disorders: No - GI History GERD: mild Hx Gastrointestinal Disorders: Yes Gastrointestinal History Comment: occasional Gerd - Other Health History Other Health History: gout. glaucoma/elevated IOP - Chronic Pain History Chronic Pain: No - Surgical History Prior Surgeries: 2 eye surgeries. Left shoulder 2012 ANE Review of Systems Review of Systems: - Exercise capacity Exercise capacity: >=4 METS ANE Patient History - Allergies Allergies/Adverse Reactions: latex Allergy (Verified 01/12/16 00:15) Latex, Natural Rubber Allergy (Verified 01/12/16 00:15) Penicillins Allergy (Verified 07/06/18 13:28) Unknown ramipril Allergy (Verified 07/06/18 13:29) Other-Enter Comments - Home Medications Home Medications: Allopurinol [Allopurinol 300 MG (RX)] 300 mg PO DAILY 02/22/13 [Last Taken 07/04] Aspirin [Aspirin 81mg (*)] 81 mg PO DAILY 02/22/13 [Last Taken 07/04/18] Atorvastatin Calcium [Lipitor 10 mg (*)] 10 mg PO DAILY 02/22/13 [Last Taken ] Latanoprost 0.005% [Xalatan 0.005% (*)] 1 drops EACHEYE HS 02/22/13 [Last Taken 07/04/18] [place]-3 Fatty Acids [Fish Oil 1000 mg (*)] 3,000 mg PO DAILY 02/22/13 [Last Taken 07/04/18] Cholecalciferol Vit D3 [Vitamin D3 2000 units tab (OTC)] 2,000 units PO DAILY [Last Taken 07/04/18] Econazole 1% [Spectazole 1%] 1 micah TP DAILY PRN 02/09/16 [Last Taken Unknown] Fluticasone Nasal [Flonase Nasal [place]] 1 sprays NASAL DAILY PRN 02/09/16 [Last Taken 07/04/18] Magnesium Oxide [Magnesium Oxide 400 mg (*)] 400 mg PO BID 02/09/16 [Last Taken 07/04/18] Polyethylene Glycol 3350 [Miralax 17 gm (*)] 17 gm PO BID 02/09/16 [Last Taken 07/04/18] Triamcinolone 0.1% [Triamcinolone 0.1% Cream (*)] 1 micah TP DAILY PRN 02/09/16 [ Last Taken Unknown] Brimonidine 0.2% [ALPHAGAN 0.2% (RX)] 1 drops EACHEYE BID 07/06/18 [Last Taken 07/04/18] Dorzolamide 2% [Trusopt 2% (*)] 1 drops EACHEYE BID 07/06/18 [Last Taken ] Hydrochlorothiazide [HCTZ (*)] 12.5 mg PO DAILY 07/06/18 [Last Taken 07/05/18] Losartan Potassium [Cozaar 50 mg (*)] 50 mg PO DAILY 07/06/18 [Last Taken ] - Anes Hx Hx Anesthesia Complications (with details): markedly decreased BP on induction - Smoking Hx Smoking Status: Former smoker Marijuana use: No - Alcohol Use Alcohol Use: Occasionally - Family Anes Hx Family Anes Hx: neg - N/A ANE Labs/Vital Signs - Labs Result Diagrams: 07/08/18 04:56 07/10/18 04:50 - Vital Signs Blood Pressure: 143/84 Heart Rate: 84 Respiratory Rate: 18 O2 Sat (%): 97 Height: 182.88 cm Weight: 102 kg ANE Physical Exam - Airway Neck exam: FROM Mallampati Score: Class 2 Mouth exam: normal dental/mouth exam - Pulmonary Pulmonary: no respiratory distress, no rales or rhonchi, clear to auscultation - Cardiovascular Cardiovascular: regular rate and rhythym, no murmur, rub, or gallop - ASA Status ASA Status: III ANE Anesthesia Plan Anesthesia Plan: general endotracheal anesthesia Total IV Anesthesia: No
[2018-07-10] MEDS ORDERED: PHENYLEPHRINE HCL 100 MCG/ML SYR IVP PRN ×2 (14:11→16:26)
[2018-07-10] MEDS ORDERED: NALOXONE HCL 0.4 MG/ML INJ IVP PRN ×2 (14:11→16:26)
[2018-07-10] MEDS ORDERED: HYDROCODONE/APAP 5/325 TAB PO PRN ×2 (14:11→16:26)
[2018-07-10] MEDS ORDERED: ACETAMINOPHEN 500 MG TAB PO PRN ×2 (14:11→16:26)
[2018-07-10] MEDS ORDERED: oxyCODONE IR 5 MG TAB PO PRN (14:11)
[2018-07-10] MEDS ORDERED: LR 500 ML IV PRN ×2 (14:11→16:26)
[2018-07-10] MEDS ORDERED: fentaNYL 100 MCG/2 ML INJ IVP PRN ×2 (14:11→16:26)
[2018-07-10] MEDS ORDERED: PROMETHAZINE HCL 25 MG/ML INJ IVP PRN ×2 (14:11→16:26)
[2018-07-10] MEDS ORDERED: ALBUTEROL 3 ML DEYVIAL IH PRN ×2 (14:11→16:26)
[2018-07-10] MEDS ORDERED: ONDANSETRON 4 MG/2 ML VIAL IVP PRN ×2 (14:11→16:26)
[2018-07-10] MEDS ORDERED: INDOMETHACIN 50 MG SUPP PR ONE (14:51)
[2018-07-10] MEDS ORDERED: IOTHALAMATE MEG (CONRAY) 50 ML VIAL IV ONE (14:51)
[2018-07-10] MEDS ORDERED: ETOMIDATE 20 MG/10 ML VIAL ONE (14:56)
[2018-07-10] MEDS ORDERED: fentaNYL 100 MCG/2 ML INJ ONE ×2 (14:56→16:18)
[2018-07-10] MEDS ORDERED: ROCURONIUM 50 MG/5 ML VIAL ONE (14:57)
[2018-07-10] MEDS ORDERED: SUCCINYLCHOLINE CHLORIDE 200 MG/10 ML SYR IVP ONE (14:58)
[2018-07-10] MEDS ORDERED: PROPOFOL 200 MG/20 ML VIAL ONE (15:07)
[2018-07-10] MEDS ORDERED: LIDOCAINE 2% 2 ML INJ ONE (15:07)
[2018-07-10] MEDS ORDERED: GLYCOPYRROLATE 0.2 MG/1 ML VIAL ONE (15:46)
--- NOTE | 2018-07-10 16:04 | GIREPORT ---
[facility] Surgical Services - Endoscopy Department Patient Name: John Ovalle Procedure Date: 07/10/2018 3:07 PM Patient Type: Inpatient Attending MD/ ER Physician: Jaime Almeida MD Procedure: ERCP Indications: For therapy of bile duct stone(s) Providers: Jaime Almeida MD Medicines: General Anesthesia, Indomethacin 100 mg [place] Complications: No immediate complications. Description of Procedure: After obtaining informed consent, the scope was passed under direct vis ion. Throughout the procedure, the patient's blood pressure, pulse, and oxyg en saturations were monitored continuously. The Duodenalscope was introduc ed through the mouth, and advanced to the duodenum and used to cannulate t he bile duct. The ERCP was accomplished without difficulty. The patient tolerated the procedure well. I interpreted fluoroscopy without assisst ance and permanent films where obtained. Findings: The scope was passed through the upper GI tract without discovering UGI findings. Inspection of the major papilla revealed that an ampullectomy (papillectomy) had been performed previously. There was a gaping orific e at the major papilla. A 3 mm biliary sphincterotomy was made with a marvin d traction (standard) sphincterotome using ERBE electrocautery. The sphincterotomy oozed blood. The biliary tree was swept with a 15 mm bal loon starting at the upper third of the main bile duct, middle third of the main bile duct and lower third of the main duct. Sludge was swept from the d uct. A few stones were removed. No stones remained. Estimated Blood Loss: Estimated blood loss: none. Post Op Diagnosis: - Prior endoscopic papillectomy - The major papilla appeared to have a gaping orifice. - Choledocholithiasis was found. Complete removal was accomplished by biliary sphincterotomy and balloon extraction. - A biliary sphincterotomy was performed. - The biliary tree was swept. Recommendation: - [facility]. - Advance diet as tolerated today. - Check lipase and liver enzymes (AST, ALT, alkaline phosphatase, bilir ubin) in the morning. - The findings and recommendations were discussed with the patient's fa lawrence. Attending Participation: I personally performed the entire procedure. Jaime Almeida MD Jaime Almeida MD 07/10/2018 4:04:43 PM This report has been signed electronicallyJaime Almeida MD Number of Addenda: 0 Note Initiated On: 07/10/2018 3:07 PM [email or web address]
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
--- NOTE | 2018-07-10 16:14 | POSTANESTH ---
Post Anesthetic Evaluation Cardiovascular Status: Similar to Pre-Op Cond Respiratory Status: Similar to Pre-op Cond. Level of Consciousness/Mental Status: Can Participate in Eval Pain Control: Adequate, Prn Tx Ordered Nausea/Vomiting Control: Adequate, Prn Tx Ordered Complications Possibly Related to Anesthesia: None Noted
[2018-07-10] MEDS: BENZONATATE 100 MG CAP PO PRN (23:09)
[2018-07-10] MEDS: GUAIFENESIN/DM 10 ML UDCUP PO PRN (23:09)
[2018-07-10] MEDS: LATANOPROST 0.005% 2.5 ML OPHT DROPS EACHEYE SCH (23:09)
[2018-07-11 05:33] LABS: PLATELET COUNT 209 10^3/uL (150-400)
[2018-07-11] MEDS: guaiFENesin 600 MG TAB.ER PO SCH (08:58)
[2018-07-11] MEDS: HYDROCHLOROTHIAZIDE 12.5 MG CAP PO SCH (08:58)
[2018-07-11] MEDS: ALLOPURINOL 300 MG TAB PO SCH (08:58)
[2018-07-11] MEDS: DORZOLAMIDE 2% OPTH DROPS EACHEYE SCH (09:02)
[2018-07-11] MEDS: BRIMONIDINE 0.2% 5 ML OPHT.BTL EACHEYE SCH (09:02)
--- NOTE | 2018-07-11 09:30 | SOAPPROG ---
JAMES Progress Note Assessment/Plan: Assessment: 1. CBD stone removed yesterday; LFT's improving and without GI symptoms. 2. Pancreatitis, resolved 3. Pneumonia, improving. Plan: 1. OK to D/C to home today from GI standpoint. 2. My office will check LFT's in 2 weeks and set up F/U OV with PA at that time. 3. If LFT's do not totally correct, will consider repeat ERCP with Spy-glass direct scoping into bile duct with Dr Marin in our practice. Jaime Almeida MD [phone] 07/11/18 09:27 Subjective: CC: CBD stone. Interval HPI; Patient without GI complaints. He wants to go home today. Objective: Vital Signs Temp Pulse Resp BP Pulse Ox 36.3 C 62 20 127/76 H 98 07/11/18 07:30 07/11/18 07:30 07/11/18 07:30 07/11/18 07:30 07/11/18 07:30 Laboratory Results 07/11/18 05:10 07/11/18 05:10 07/10/18 07/11/18 07/12/18 05:59 05:59 05:59 Intake Total 2618 1200 Balance 2618 1200 PT 13.0 SEC (12.0-15.0) 07/06/18 10:55 INR 1.02 (0.83-1.16) 07/06/18 10:55 Laboratory Tests 07/09/18 07/10/18 07/11/18 04:30 04:50 05:10 Total Bilirubin 2.8 H 2.5 H 1.8 H AST 113 H 115 H ALT 152 H 142 H Alkaline Phosphatase 194 H 149 H Lipase 520 H 234 Physical Exam - Physical Exam General Appearance: WD/WN, alert, no apparent distress Respiratory: lungs clear, normal breath sounds Cardiac/Chest: regular rate, rhythm Abdomen: normal bowel sounds, non-tender Skin: normal color, warm/dry Neuro/Psych: alert, normal mood/affect, oriented x 3 ICD10 Worksheet Patient Problems: Problems Problem Status Onset Cholangitis Acute Choledocholithiasis Acute Cholecystitis with cholelithiasis Acute Choledocholithiasis with cholecystitis Acute
[2018-07-11 11:14] VITALS: BP 121/69
--- NOTE | 2018-07-11 12:01 | PDDCSUM ---
Discharge Summary Discharge Summary: Date of Admission: 07/06/2018 Date of Discharge: 07/11/2018 Discharge Diagnoses: RSV pneumonia, resolving Acute cholangitis, resolved Acute choledocholithiasis, resolved Acute pancreatitis, resolved Hypertension Hyponatremia, resolved Mild anemia Hyperlipidemia Obesity Right foot drop, chronic Chronic lymphedema bilateral lower extremities H/o follicular lymphoma Admission Diagnoses: Cholangitis/choledocholithiasis Pancreatitis Possible left lower lobe pneumonia Hyponatremia Hyperlipidemia Consultants: GI-Dr. Kennedi Lomas Oncology-Dr. Whitney Cooper [facility] Course: The patient is an 78-year-old male with history of prior cholecystectomy in 2016 who presented to the ED with severe abdominal pain, nausea, and fever. He was also noted to have developed a upper respiratory infection a week prior. Patient was found to have ascending cholangitis and acute pancreatitis secondary to choledocholithiasis as well as a left lower lobe pneumonia secondary to RSV. Patient was treated with IV antibiotics, IV fluids, and was kept fasting. The patient improved greatly with medical management and the pancreatitis/cholangitis resolved. GI Dr. Almeida performed ERCP with stone removal on 07/10/18 without complication. The patient was discharged to home the next day. He was able to independently perform activities of daily life without difficulty at the time of discharge. Physical Exam: General: The patient is a male who is alert and in no acute distress. HEENT: normocephalic, extraocular movements intact, conjunctivae clear. Nares and oral mucosa pink and moist. Neck: trachea midline, no visible masses, no external lesions. Resp: unlabored breathing. Abd: soft and nondistended. Nontender throughout. Musculoskeletal: Normal gait. Neuro: cranial nerves II - XII grossly intact. Intact gross motor and sensory function. Psych: appropriate mood/affect. Skin: no pallor. Condition: Stable. Discharged to: Home. Pertinent tests/labs/imaging: * CXR 1 view: 1. Left basilar infiltrate/pneumonia. 2. Soft tissue thickening right superior mediastinum. Consider lymphadenopathy or consolidation. * CT ab/pelv w contrast: 1. Acute obstructing choledocholithiasis. Gastroenterology consultation for ERCP is recommended for further evaluation. 2. Focal left lower lobe pneumonia. * Lipase on admission 4818, prior to discharge 234. * Blood cultures - negative x 2 (final). * Resp panel - positive for RSV. Medications: Please see med rec form. Resumed home meds. New meds: Ciprofloxacin 500 mg p.o. twice daily for 3 days. Metronidazole 500 mg orally 3 times a day for 3 more days. Special instructions: Return to ED if symptoms recur or worsen. Consider to avoid eating greasy/fatty/fried foods. Follow up: PCP Dr. Reza in 1 week. > 30 minutes of total time was spent on counseling and coordination of care for this patient's discharge.
--- NOTE | 2018-07-11 12:13 | ASMTCMCOM ---
CM Note CM Note Notes: 07/11/2018 Case Management Note Discussed pt during rounds this morning. Pt likely to d/c today. PT eval today cleared pt for home with no needs. Case Management d/c poc: home with supportive family and follow up as directed. Case Management available if needs change. Date Signed: 07/11/2018 12:13 PM Electronically Signed By:Fanta Peterson RN
--- NOTE | 2018-07-11 12:26 | ASDISCHSUM ---
Discharge Information Plan Status:Home with No Needs Medically Cleared to Leave:07/11/2018 Discharge Date:07/11/2018 CM D/C Disposition:Home, Routine, Self-Care ADT D/C Disposition:Home, Routine, Self-Care Projected Discharge Date:07/11/2018 Transportation at D/C:Family Discharge Delay Reason: Follow-Up Date:07/11/2018 Discharge Slot: Final Diagnosis: Placement Information Patient Contact Information Contact Name:LIANG Relationship: Address:[address] [place] [address] Work Phone: City:[place] Alternate Phone: [facility]/Zip Code:[place] [address] Email: Financial Information Financial Class:Medicare Primary Plan Desc:MEDICARE IP PART B ONLY Primary Plan Number:[id number] Secondary Plan Desc:MED[place] Secondary Plan Number:[id number] Assessment Information LACE LACE Length of stay for Answers: 4-6 days current admission Acuity / Level of Answers: Yes Care: Did the patient have an inpatient admission? Comorbidities - select Answers: Diabetes (uncontrolled or all that apply controlled) Other Notes: HTN # of Emergency department Answers: 1-2 visits in the last 6 months Score: 10 Date Signed: 07/11/2018 12:24 PM Electronically Signed By:Fanta Peterson RN [facility] CM Progress Note CM Note CM Note Notes: Pt chart reviewed abd met with Pt. Pt is an 78yr old admitted with abd pain, nausea, fever and vomiting with choledocholithias. Also, with Pneumonia vs RSV. Will need ERCP but will postpone due to Resp Infection. History DM. Pt lives Independent. CM available for needs. PLAN: TBD Date Signed: 07/07/2018 02:38 PM Electronically Signed By:Irene Stahl [facility] CM Progress Note CM Note CM Note Notes: 07/11/2018 Case Management Note Discussed pt during rounds this morning. Pt likely to d/c today. PT eval today cleared pt for home with no needs. Case Management d/c poc: home with supportive family and follow up as directed. Case Management available if needs change. Date Signed: 07/11/2018 12:13 PM Electronically Signed By:Fanta Peterson RN Intervention Information
== END 2018-07-11 15:30 | disposition home or self-care (01) | DRG 438 ==
LOC: F1N 14:26
PROVIDERS: ADMIT Hospitalist; ATTEND Hospitalist
PROC: 0FC98ZZ Extirpation of Matter from Common Bile Duct, Via Natural or Artificial Opening Endoscopic (ICD-10-PCS; principal; 2018-07-10 14:15)
DX: K85.10 Biliary acute pancreatitis without necrosis or infection (principal); K80.32 Calculus of bile duct with acute cholangitis without obstruction; J12.1 Respiratory syncytial virus pneumonia; E87.1 Hypo-osmolality and hyponatremia; D64.9 Anemia, unspecified; E11.9 Type 2 diabetes mellitus without complications; M21.379 Foot drop, unspecified foot; E78.5 Hyperlipidemia, unspecified; I10 Essential (primary) hypertension; Z85.72 Personal history of non-Hodgkin lymphomas; Z87.891 Personal history of nicotine dependence
CPT/HCPCS: 96365; 97110-GP; 97116-GP; 97161-GP; 97165-GO; 97535-GO; J0330; J0696; J1170; J1956; J2405; J2704; J3010; Q9961; Q9967